=== PATIENT | female | born 1965 | race Caucasian/White ===

== ENCOUNTER 2019-12-11 08:31 | Emergency (ER) | payer OTHER ==
[~2019-12-11] VITALS: Ht 180.3 cm; Wt 79.4 kg
[2019-12-11] MEDS ORDERED: LISINOPRIL10 MG (08:41)
[2019-12-11] MEDS ORDERED: INTESTINEX680 M1 PO (12:01)
[2019-12-11] MEDS ORDERED: CIPRO500 MG PO (12:01)
[2019-12-11] MEDS ORDERED: PEPCID AC20 MG PO (12:01)
[2019-12-11] MEDS ORDERED: LEVSIN/SL0.125 MG SL (12:01)
== END 2019-12-11 12:34 | disposition home or self-care (01) ==
LOC: ER 08:31
DX: R10.13 Epigastric pain (principal); Z20.828 Contact with and (suspected) exposure to other viral communicable diseases

== ENCOUNTER 2020-10-12 18:59 | Emergency (ER) | payer OTHER ==
[~2020-10-12] VITALS: Ht 180.3 cm; Wt 80.7 kg
[~2020-10-12 18:59] MED LIST: CIPRO500 MG PO; INTESTINEX680 M1 PO; LEVSIN/SL0.125 MG SL; LISINOPRIL10 MG; PEPCID AC20 MG PO
[2020-10-12] MEDS ORDERED: PREVACID30 MG (19:17)
[2020-10-12] MEDS ORDERED: KETO10TA2 PO (22:29)
[2020-10-12] MEDS ORDERED: TAMS0.4C PO (22:29)
== END 2020-10-12 22:42 | disposition home or self-care (01) ==
LOC: ER 18:59
DX: N23 Unspecified renal colic (principal)

== ENCOUNTER 2021-05-24 20:42 | Emergency (ER) | payer OTHER ==
[~2021-05-24] VITALS: Ht 180.3 cm; Wt 77.1 kg
[~2021-05-24 20:42] MED LIST changes: +KETO10TA2 PO; +PREVACID30 MG; +TAMS0.4C PO
== END 2021-05-24 23:57 | disposition left against medical advice (07) ==
LOC: ER 20:42
DX: Z53.21 Procedure and treatment not carried out due to patient leaving prior to being seen by health care provider (principal)

== ENCOUNTER 2023-01-04 18:35 | Emergency (ER) | payer OTHER ==
[~2023-01-04] VITALS: Ht 180.3 cm; Wt 79.4 kg
[2023-01-04 19:57] LABS: HEMATOCRIT 38.5 % (36.0-45.00); HEMOGLOBIN 12.5 g/dL (12.0-15.00); MEAN CELL VOLUME 84.4 fL (80.00-100.00); MEAN CORPUSCULAR HEMOGLOBIN 27.4 pg (27.00-32.0); MEAN CORPUSCULAR HGB CONC 32.4 g/dl (32.0-36.0); PLATELET COUNT 208 K/uL (150-450); RED BLOOD COUNT 4.56 M/uL (4.00-6.00); RED CELL DISTRIBUTION WIDTH 14.1 % (11.5-14.5)
[2023-01-04 20:44] LABS: ALBUMIN 2.8 gm/dL (3.4-5.0); ALKALINE PHOSPHATASE 81 U/L (50-136); ALT/SGPT 15 U/L (12-78); AMYLASE 86 U/L (25-115); AST/SGOT 14 U/L (15-37); BILIRUBIN TOTAL 0.31 mg/dL (0.3-1.2); BILIRUBIN,CONJUGATED < 0.10 mg/dL (0.0-0.2); BILIRUBIN,UNCONJUGATED 0.21 mg/dL (0.0-0.6); BLOOD UREA NITROGEN 14 mg/dL (7-18); BUN CREA RATIO 26 (7.0-25.0); CARBON DIOXIDE 24 mEq/L (21-32); CREATININE SERUM 0.54 mg/dL (0.55-1.02); GFR 117.21; GLOBULINA 2.7 G/DL (2.4-3.5); GLUCOSE FASTING 68 mg/dL (65-100); LIPASE 43 U/L (13-75); OSMOLALITY SERUM 289 MOSM/KG (275-295); POTASSIUM 3.32 mEq/L (3.5-5.1); SODIUM 146 mmol/L (136-145); TOTAL PROTEIN 5.5 gm/dL (6.4-8.2)
[2023-01-04 20:56] LABS: ANION GAP 5 (10.0-20.0)
[2023-01-04 20:57] LABS: CALCIUM 6.4 mg/dL (8.5-10.1)
[2023-01-04 21:01] LABS: CHLORIDE 120 mmol/L (98-107)
== END 2023-01-04 22:09 | disposition home or self-care (01) ==
LOC: ER 18:36
PROVIDERS: General Practice
DX: E83.51 Hypocalcemia (principal); K29.70 Gastritis, unspecified, without bleeding